=== PATIENT | female | born 1935 | race Caucasian/White ===

== ENCOUNTER 2017-05-20 10:51 | Day surgery (SDC) | payer MEDICARE ==
[~2017-05-20] VITALS: Ht 162.6 cm; Wt 75.0 kg
[2017-05-20] VITALS (9 sets, daily range): BP systolic 120–177; BP diastolic 63–86; PULSE 65–78; TEMP 97–97.8
[~2017-05-20 10:51] MED LIST: ANTACID200 MG PO; ASPIRIN E.C. 8181 MG PO; AZO-STANDARD95 MG PO; FISH OIL1000 MG PO; GLUCOSAMINE & C1 CA1 PO; NORCO 325 MG-51 TAB PO; ONCOVITE1 TAB PO; PROBIOTIC-MAJOR PO; SENOKOT S 50 MG1 TAB PO; SINGULAIR 110 MG/TAB PO; SYNTHROID0.112 MG/T PO; VITAMIN D32000 I1 PO; ZOCOR 20MG20 MG PO
[2017-05-20] MEDS ORDERED: NORCO 325 MG-51 TAB PO (15:20)
[2017-05-20] MEDS ORDERED: SENOKOT S 50 MG1 TAB PO (15:21)
[2017-05-20] MEDS ORDERED: PYRIDIUM 100MG100 MG PO (15:22)
[2017-05-21 02:33] VITALS: BP 148/88; PULSE 74; TEMP 98.1
[2017-05-21 04:55] VITALS: BP 142/73; PULSE 72; TEMP 98
[2017-05-21 07:39] VITALS: BP 140/62; PULSE 77; TEMP 97.4
== END 2017-05-21 09:11 | disposition home or self-care (01) ==
LOC: SDCO 10:51 → SURG 17:40 → SDCO 05-21 09:11
DX: C67.8 Malignant neoplasm of overlapping sites of bladder (principal); E06.3 Autoimmune thyroiditis; M81.0 Age-related osteoporosis without current pathological fracture; K44.9 Diaphragmatic hernia without obstruction or gangrene
CPT/HCPCS: OP; C1769; C2617; G0378; J0690; J1100; J2405; J2704; J3010; J7120; Q9967

== ENCOUNTER → 2017-10-21 | Day surgery (SDC) | payer MEDICARE ==
[~2017-10-21] VITALS: Ht 162.6 cm; Wt 69.4 kg
[~2017-10-21] MED LIST changes: +PRILOSEC 20MG20 MG PO; +PYRIDIUM 100MG100 MG PO
[2017-10-21 12:25] VITALS: BP 173/74; PULSE 79; TEMP 97.2
[2017-10-21 14:06] VITALS: TEMP 98
[2017-10-21 14:15] VITALS: BP 151/77; PULSE 70
[2017-10-21 14:30] VITALS: BP 166/74; PULSE 70
[2017-10-21 14:45] VITALS: BP 184/81; PULSE 71
== END ==
LOC: SDCO 11:01
DX: N32.89 Other specified disorders of bladder (principal); K21.9 Gastro-esophageal reflux disease without esophagitis; Z88.2 Allergy status to sulfonamides; Z88.8 Allergy status to other drugs, medicaments and biological substances; Z88.1 Allergy status to other antibiotic agents; Z91.040 Latex allergy status; Z90.710 Acquired absence of both cervix and uterus; Z79.82 Long term (current) use of aspirin; Z85.51 Personal history of malignant neoplasm of bladder
CPT/HCPCS: C1769; J0690; J1100; J1644; J2405; J2704; J3010; J7120; Q9967

== ENCOUNTER 2018-01-27 12:03 | Day surgery (SDC) | payer MEDICARE ==
[~2018-01-27] VITALS: Ht 162.6 cm; Wt 63.0 kg
[2018-01-27 13:24] VITALS: BP 152/86; PULSE 76; TEMP 97.5
[2018-01-27] MEDS ORDERED: vitamin D PO (13:47)
[2018-01-27] MEDS ORDERED: BIOTIN10000 MC1 PO (13:48)
[2018-01-27] MEDS ORDERED: NATURAL MAGNES200 MG PO (13:48)
[2018-01-27] MEDS ORDERED: MELATONIN1 MG PO (13:49)
[2018-01-27] MEDS ORDERED: SUPER ENZYMES PO (13:50)
[2018-01-27 14:37] VITALS: TEMP 97.5
[2018-01-27 15:00] VITALS: BP 178/68; PULSE 61
[2018-01-27 15:15] VITALS: BP 178/77; PULSE 64
[2018-01-27 15:30] VITALS: BP 162/82; PULSE 60
[2018-01-27] MEDS ORDERED: NORCO 325 MG-51 TAB PO (15:38)
[2018-01-27] MEDS ORDERED: PYRIDIUM 100MG100 MG PO (15:38)
[2018-01-27] MEDS ORDERED: SENOKOT S 50 MG1 TAB PO (15:39)
[2018-01-27 15:45] VITALS: BP 177/85; PULSE 59
== END 2018-01-27 16:26 | disposition home or self-care (01) ==
LOC: SDCO 12:03
DX: C67.8 Malignant neoplasm of overlapping sites of bladder (principal); N13.1 Hydronephrosis with ureteral stricture, not elsewhere classified; E83.42 Hypomagnesemia; E03.9 Hypothyroidism, unspecified; M81.0 Age-related osteoporosis without current pathological fracture; Z90.710 Acquired absence of both cervix and uterus; Z79.82 Long term (current) use of aspirin; Z88.2 Allergy status to sulfonamides; Z88.1 Allergy status to other antibiotic agents; Z91.040 Latex allergy status; Z87.891 Personal history of nicotine dependence
CPT/HCPCS: C1769; C2617; J0690; J1100; J2405; J2704; J3010; J7120; Q9967

== ENCOUNTER 2018-04-21 12:02 | Day surgery (SDC) | payer MEDICARE ==
[~2018-04-21] VITALS: Ht 162.6 cm; Wt 63.4 kg
[~2018-04-21 12:02] MED LIST changes: +BIOTIN10000 MC1 PO; +MELATONIN1 MG PO; +NATURAL MAGNES200 MG PO; +SUPER ENZYMES PO; +vitamin D PO
[2018-04-21 12:41] VITALS: BP 179/91; PULSE 70; TEMP 97.6
[2018-04-21] MEDS ORDERED: SYNTHROID0.1 MG/TAB PO (12:54)
[2018-04-21 15:45] VITALS: BP 152/77; PULSE 66; TEMP 97.2
[2018-04-21 16:00] VITALS: BP 156/83; PULSE 69
[2018-04-21 16:15] VITALS: BP 156/94; PULSE 73
== END 2018-04-21 17:07 | disposition home or self-care (01) ==
LOC: SDCO 12:02
DX: N13.1 Hydronephrosis with ureteral stricture, not elsewhere classified (principal); N30.20 Other chronic cystitis without hematuria; E03.9 Hypothyroidism, unspecified; M81.0 Age-related osteoporosis without current pathological fracture; E83.42 Hypomagnesemia; E06.3 Autoimmune thyroiditis; N17.9 Acute kidney failure, unspecified; K21.9 Gastro-esophageal reflux disease without esophagitis; D64.9 Anemia, unspecified; Z90.710 Acquired absence of both cervix and uterus; Z79.82 Long term (current) use of aspirin; Z88.1 Allergy status to other antibiotic agents; Z91.040 Latex allergy status; Z88.2 Allergy status to sulfonamides; Z88.6 Allergy status to analgesic agent; Z87.891 Personal history of nicotine dependence; Z85.51 Personal history of malignant neoplasm of bladder
CPT/HCPCS: C1769; C2617; J0690; J1100; J2405; J2704; J3010; J7120

== ENCOUNTER 2018-08-09 05:43 | Day surgery (SDC) | payer MEDICARE ==
[~2018-08-09] VITALS: Ht 162.6 cm; Wt 67.2 kg
[~2018-08-09 05:43] MED LIST changes: +SYNTHROID0.1 MG/TAB PO
[2018-08-09 06:19] VITALS: BP 162/85; PULSE 70; TEMP 97.6
[2018-08-09] MEDS ORDERED: DIGESTIVE PROB1 EACH PO (06:31)
--- NOTE | 2018-08-09 06:33 | NUR ---
TO RM AT 0553- CALL LIGHT IN REACH AT BEDSIDE
[2018-08-09 08:13] VITALS: TEMP 98.1
[2018-08-09 08:20] VITALS: BP 137/62; PULSE 57
--- NOTE | 2018-08-09 08:20 | NUR ---
TO RM 8 PER CART FROM PACU. ALERT ORIENTED X3, TALKING TO STAFF AND . DENIES PAIN OR DISCOMFORT. DENIES NAUSEA OR VOMITING. RECEIVED COFFEE AND MUFFIN.
[2018-08-09 08:35] VITALS: BP 144/65; PULSE 58
--- NOTE | 2018-08-09 08:35 | NUR ---
ATE 100% AND TOLERATED WELL. NO OTHER CHANGES
[2018-08-09 08:50] VITALS: BP 144/63; PULSE 62
--- NOTE | 2018-08-09 08:50 | NUR ---
RECEIVED 2ND CUP COFFEE
--- NOTE | 2018-08-09 09:00 | NUR ---
UP AMBULATED TO BATHROOM. VOIDED AND TOLERATED WELL CONTINUES TO DENY PAIN OR DISCOMFORT.
--- NOTE | 2018-08-09 09:05 | NUR ---
RECEIVED DISCHARGE INSTRUCTIONS AND VERBALIZED UNDERSTANDING. DISCONTINUED IV AND INT-CATHETER INTACT PATIENT GETTING DRESSED
--- NOTE | 2018-08-09 09:15 | NUR ---
DISCHARGED PER WC BY NURSING STAFF TO PRIVATE CAR IN CARE OF -TERESA.
== END 2018-08-09 09:34 | disposition home or self-care (01) ==
LOC: SDCO 05:43
DX: N13.1 Hydronephrosis with ureteral stricture, not elsewhere classified (principal); N17.9 Acute kidney failure, unspecified; E06.3 Autoimmune thyroiditis; E83.42 Hypomagnesemia; E03.9 Hypothyroidism, unspecified; M81.0 Age-related osteoporosis without current pathological fracture; K21.9 Gastro-esophageal reflux disease without esophagitis; D64.9 Anemia, unspecified; Z85.51 Personal history of malignant neoplasm of bladder; Z90.710 Acquired absence of both cervix and uterus; Z79.82 Long term (current) use of aspirin; Z88.1 Allergy status to other antibiotic agents; Z91.040 Latex allergy status; Z88.2 Allergy status to sulfonamides; Z87.891 Personal history of nicotine dependence
CPT/HCPCS: C1769; C2617; J0690; J1100; J2405; J2704; J3010; J7120

== ENCOUNTER 2019-02-11 08:39 | Inpatient (IN) | payer MEDICARE ==
[~2019-02-11] VITALS: Ht 162.6 cm; Wt 69.9 kg
[~2019-02-11 08:39] MED LIST changes: +AZO URINARY PAI95 MG PO; +BIOTIN800 MCG PO; +DIGESTIVE PROB1 EACH PO
[2019-02-11 12:09] LABS: BASO % 0.4 % (0.0-2.0); EOS # 0.1 (0.0-0.7); EOS % 1.9 % (0-4.0); GRAN # 5.2 (1.4-6.5); GRAN % 77.1 % (42.2-75.2); HEMATOCRIT 39.6 % (37.0-47.0); LYMPH # 0.9 (1.2-3.4); MEAN CELL VOLUME 97 fl (80.0-100.0); MEAN CORPUSCULAR HEMOGLOBIN 32 pg (27.0-31.0); MEAN CORPUSCULAR HGB CONC 33 g/dl (33.0-37.0); MEAN PLATELET VOLUME 10.5 fl (7.4-10.4); MONO # 0.5 (0.1-0.6); MONO % 7.5 % (1.7-9.3); PLATELET COUNT 231 K/mm3 (130-400); RED BLOOD COUNT 4.09 M/mm3 (4.10-5.30); REDCELL DISTRIBUTION WIDTH-CV 12.7 % (11.5-14.5)
[2019-02-11 12:18] LABS: INR 0.9 (0.8-3.0); PROTHROMBIN TIME 10.6 SECONDS (9.7-12.8)
[2019-02-11 12:49] LABS: ALBUMIN 3.9 gm/dL (3.5-5.0); BILIRUBIN,TOTAL 0.4 mg/dL (0.0-1.0); CALCIUM 9.6 mg/dL (8.4-10.2); CREATININE, serum 1.3 (0.52-1.25); POTASSIUM 4.4 mmol/L (3.4-5.0); TOTAL PROTEIN 6.8 gm/dL (6.4-8.2)
[2019-02-11 13:29] VITALS: BP 171/73; PULSE 67; TEMP 98
[2019-02-11 17:19] VITALS: BP 176/80; PULSE 64; TEMP 97.8
--- NOTE | 2019-02-11 18:00 | NUR ---
Patient has been doing well since being admitted. Minimal complaints of pain. Her pain has been well controlled with tylenol. She did not want a srivastava catheter placed. She is using the bedpan without issues. No other changes at this time. Call light within reach. Tylenol is controlling pain well. Patient understands she is NPO after midnight.
[2019-02-11 18:12] LABS: COLLECTION METHOD CATHETER
[2019-02-11 18:22] LABS: MUCOUS Present /lpf; PH 7 (5-8); SQUAMOUS EPITHELIAL 0-2 /hpf; URINE APPEARANCE Clear; URINE BACTERIA None Seen /hpf; URINE BILIRUBIN Negative (NEGATIVE); URINE BLOOD 1+ (NEGATIVE); URINE COLOR Straw; URINE GLUCOSE Negative (NEGATIVE); URINE KETONE Negative (NEGATIVE); URINE LEUKOCYTE ESTERASE 1+ (NEGATIVE); URINE NITRATE Negative (NEGATIVE); URINE PROTEIN(semi-quant) Negative (NEGATIVE); URINE UROBILINOGEN Negative (NEGATIVE)
[2019-02-11 20:08] VITALS: BP 149/72; PULSE 71; TEMP 98.3
[2019-02-12] VITALS (13 sets, daily range): BP systolic 137–185; BP diastolic 66–91; PULSE 61–82; TEMP 97.6–98.5
--- NOTE | 2019-02-12 00:32 | NUR ---
5 PAGE ADMISSION ASSESSMENT COMPLETED. CONSENT FOR SURGERY OBTAINED. PT STATES HER PAIN IS VERY TOLERABLE LONG SHE DOES NOT MOVE.
--- NOTE | 2019-02-12 06:20 | NUR ---
RESTING QUIETLY. NO N/V. PT USING BEDPAIN. CONSENT SIGNED FOR SURGERY.
[2019-02-12 07:43] LABS: BASO % 0.5 % (0.0-2.0); EOS # 0.2 (0.0-0.7); EOS % 2.9 % (0-4.0); GRAN # 4.2 (1.4-6.5); GRAN % 72.7 % (42.2-75.2); HEMOGLOBIN 11.6 g/dl (12.5-16.0); LYMPH # 0.8 (1.2-3.4); LYMPH % 14.3 % (20.0-51.0); MEAN CELL VOLUME 97 fl (80.0-100.0); MEAN CORPUSCULAR HEMOGLOBIN 32 pg (27.0-31.0); MEAN CORPUSCULAR HGB CONC 33 g/dl (33.0-37.0); MEAN PLATELET VOLUME 10.2 fl (7.4-10.4); MONO # 0.5 (0.1-0.6); MONO % 9.3 % (1.7-9.3); PLATELET COUNT 229 K/mm3 (130-400); RED BLOOD COUNT 3.64 M/mm3 (4.10-5.30); REDCELL DISTRIBUTION WIDTH-CV 12.7 % (11.5-14.5)
--- NOTE | 2019-02-12 07:50 | NUR ---
To surgery per bed with OR staff. Family here.
[2019-02-12 07:57] LABS: ALBUMIN 3.6 gm/dL (3.5-5.0); BILIRUBIN,TOTAL 0.4 mg/dL (0.0-1.0); CALCIUM 9.3 mg/dL (8.4-10.2); CREATININE, serum 1.14 (0.52-1.25); PHOSPHOROUS 3.5 mg/dL (2.5-4.5); TOTAL PROTEIN 6.6 gm/dL (6.4-8.2)
[2019-02-12 08:05] LABS: HEMATOCRIT 35.3 % (37.0-47.0)
--- NOTE | 2019-02-12 12:06 | NUR ---
Patient lives at home with her (Jasiel Lorenzo) in [place], [place] and plans to return home upon recovery if possible. Patient is mostly independent with daily living activities, has no durable medical equipment usage at this time but may need assistance since right hip fracture and to be determined. Patient's primary care physician is Dr. Leobardo Armenta, her pharmacy is [facility], and she does have advance directives of healthcare completed (primary DPOA is Jasiel Lorenzo [phone] and secondary DPOA is Kathleen Lorenzo). No further needs at this time and administrator social welfare will follow as needed.
--- NOTE | 2019-02-12 12:35 | NUR ---
Received patient from PACU per bed. Had spinal anesthesia. No complaints. VSS. Occlusive dressing to right hip CDI. Ice pack intact. Family here.
--- NOTE | 2019-02-12 18:00 | NUR ---
VSS. Right hip pain improved with pain medication and repositioning. Taking po fluids.
[2019-02-13 03:33] VITALS: BP 186/83; PULSE 78; TEMP 98.1
[2019-02-13 06:21] LABS: HEMOGLOBIN 11.7 g/dl (12.5-16.0)
[2019-02-13 07:24] VITALS: BP 162/66; PULSE 86; TEMP 98
--- NOTE | 2019-02-13 11:27 | NUR ---
First visit from the sourcing engineer. No needs right now.
--- NOTE | 2019-02-13 11:32 | NUR ---
PT IV INFILTRATED DURING ASSESSMENTS. DISCONTINUED. PT TOLERATED WELL. UP TO RECLINER WITH THERAPY. PT A/O X3 FAMILY AT BEDSIDE. NEW ORDERS RECIEVED SEE COMPUTER.
[2019-02-13 11:41] VITALS: BP 130/77; PULSE 80; TEMP 98.5
--- NOTE | 2019-02-13 13:46 | NUR ---
ZAKIA met with the patient to discuss discharge plan. The pt was interested in [facility]. SW presented the patient choice form and pt chose [facility]. A copy was provided to the patient and the original was placed in the chart. ZAKIA informed SONA Goldberg Director. ZAKIA will continue to follow to assist with any discharge recommendations.
--- NOTE | 2019-02-13 14:54 | NUR ---
DISCONTINUED BUENROSTRO CATHETER, EMPTIED 1250 MLS CLEAR YELLOW URINE. TIP INTACT, PT TOLERATED WELL. DRESSING CHANGE COMPLETE AQUACEL OVER STERI STRIPS. INCISION CDI.
--- NOTE | 2019-02-13 15:59 | NUR ---
Ashlyn, [facility] Director reports patient can be accepted to [facility] tomorrow, 02/13. SW will continue to follow.
[2019-02-13 16:21] VITALS: BP 155/63; PULSE 80; TEMP 97.6
--- NOTE | 2019-02-13 18:52 | NUR ---
REPORT TO WILY JIMENEZ.
--- NOTE | 2019-02-13 20:00 | NUR ---
PATIENT IS A&O. 1 ASSIST TO BATHROOM TO VOID AND THEN BACK TO BED. PATIENT REPORTS SHE IS VERY TIRED FROM THE DAY. RIGHT HIP DRESSING IS CD&I WITH AQUACEL. TEDS & SCD'S TO BLE. POSITIVE PEDAL PULSES TO BLE. PATIENT EAT/DRINK/VOIDING SUFFICENT AMOUNTS. NO C/O N/V. IV TO INT. HEAD TO TOE ASSESSMENT WNL. PATIENT ONLY REQUESTING TYLENOL FOR DISCOMFORT IN RIGHT HIP. ICE PACK APPLIED. PM MEDS GIVEN. CALL LIGHT IN REACH. LIGHTS TURN DOWN.
[2019-02-13 21:33] VITALS: BP 155/71; PULSE 88; TEMP 98.9
[2019-02-13 23:50] VITALS: BP 169/81; PULSE 95; TEMP 98.8
[2019-02-14 03:16] VITALS: BP 177/84; PULSE 82; TEMP 98.4
[2019-02-14 07:06] LABS: BASO % 0.4 % (0.0-2.0); CALCIUM 9.2 mg/dL (8.4-10.2); CREATININE, serum 1.15 (0.52-1.25); EOS # 0.3 (0.0-0.7); EOS % 3.8 % (0-4.0); GRAN # 6.1 (1.4-6.5); GRAN % 73.6 % (42.2-75.2); HEMOGLOBIN 11.1 g/dl (12.5-16.0); LYMPH % 11.7 % (20.0-51.0); MEAN CELL VOLUME 95 fl (80.0-100.0); MEAN CORPUSCULAR HEMOGLOBIN 31 pg (27.0-31.0); MEAN CORPUSCULAR HGB CONC 33 g/dl (33.0-37.0); MONO # 0.8 (0.1-0.6); MONO % 10.1 % (1.7-9.3); PLATELET COUNT 213 K/mm3 (130-400); POTASSIUM 3.8 mmol/L (3.4-5.0); RED BLOOD COUNT 3.56 M/mm3 (4.10-5.30); REDCELL DISTRIBUTION WIDTH-CV 12.8 % (11.5-14.5)
[2019-02-14 07:15] LABS: HEMATOCRIT 33.9 % (37.0-47.0)
[2019-02-14 07:37] VITALS: BP 154/68; PULSE 82; TEMP 98.3
[2019-02-14 07:38] LABS: TSH w REFLEX 17.5 uIU/mL (0.465-4.680)
--- NOTE | 2019-02-14 09:21 | NUR ---
SW presented the IM form to the patient. Patient understood and signed the form. A copy was provided to the pt and the original was placed in the chart. ZAKIA will continue to follow.
[2019-02-14] MEDS ORDERED: ASPI325T6 PO (10:38)
[2019-02-14] MEDS ORDERED: TYLENOL 325MG325 MG PO (10:39)
[2019-02-14] MEDS ORDERED: DULCOLAX S10 MG/SUPP RC (10:40)
[2019-02-14] MEDS ORDERED: OSCAL 500 TAB500 MG PO (10:40)
[2019-02-14] MEDS ORDERED: SENNA-S 50 MG-81 TAB PO (10:40)
[2019-02-14] MEDS ORDERED: NORCO 325 MG-51 TAB PO (10:40)
[2019-02-14] MEDS ORDERED: GOOD NEIGH1200 MG/15 PO (10:40)
[2019-02-14] MEDS ORDERED: VITAMIN C500 MG PO (10:41)
[2019-02-14 11:13] VITALS: BP 161/72; PULSE 77; TEMP 98.3
[2019-02-14] MEDS ORDERED: NORVASC 5MG5 MG/TAB PO (11:14)
[2019-02-14] MEDS ORDERED: SYNTHROID0.112 MG/T PO (11:15)
--- NOTE | 2019-02-14 12:19 | NUR ---
Patient has been doing well all morning. Minimal complaints of pain. Patient is discharging to [facility]. Report given to Ilya Adamson RN. All belongings packed up and moved to room 338. Patient is getting ready to move now. First dose of Norvasc given before going. Patient has already at lunch as well. No other changes at this time.
== END 2019-02-14 12:15 | DRG 470 ==
LOC: COL.ER 08:39 → SURG 12:02 → COL.ER 12:19 → SURG 12:19
PROVIDERS: Nurse Practitioner Family; Nurse Practitioner Primary Care; Orthopaedic Surgery; ADMIT Family Medicine
PROC: 0SRR0J9 Replacement of Right Hip Joint, Femoral Surface with Synthetic Substitute, Cemented, Open Approach (ICD-10-PCS; principal; 2019-02-12 08:00)
DX: M80.051A Age-related osteoporosis with current pathological fracture, right femur, initial encounter for fracture (principal); N17.9 Acute kidney failure, unspecified; I10 Essential (primary) hypertension; E78.5 Hyperlipidemia, unspecified; E06.3 Autoimmune thyroiditis; I12.9 Hypertensive chronic kidney disease with stage 1 through stage 4 chronic kidney disease, or unspecified chronic kidney disease; N18.3 Chronic kidney disease, stage 3 (moderate); E86.0 Dehydration; Z85.51 Personal history of malignant neoplasm of bladder; Z88.2 Allergy status to sulfonamides; Z88.1 Allergy status to other antibiotic agents; Z90.710 Acquired absence of both cervix and uterus
CPT/HCPCS: 99222-AI; 99232-AI; 99233-AI; 99239; A4314; A9284; C1713; C1776; J0171; J0360; J0690; J1885; J2250; J2270; J2370; J2405; J2704; J3010; J7120

== ENCOUNTER 2019-02-14 09:30 | Inpatient (IN) | payer MEDICARE ==
[~2019-02-14] VITALS: Ht 162.6 cm; Wt 69.4 kg
[2019-02-14] MEDS ORDERED: ASPI325T6 PO (10:38)
[2019-02-14] MEDS ORDERED: TYLENOL 325MG325 MG PO (10:39)
[2019-02-14] MEDS ORDERED: SENNA-S 50 MG-81 TAB PO (10:40)
[2019-02-14] MEDS ORDERED: DULCOLAX S10 MG/SUPP RC (10:40)
[2019-02-14] MEDS ORDERED: NORCO 325 MG-51 TAB PO (10:40)
[2019-02-14] MEDS ORDERED: OSCAL 500 TAB500 MG PO (10:40)
[2019-02-14] MEDS ORDERED: GOOD NEIGH1200 MG/15 PO (10:40)
[2019-02-14] MEDS ORDERED: VITAMIN C500 MG PO (10:41)
[2019-02-14] MEDS ORDERED: NORVASC 5MG5 MG/TAB PO (11:14)
[2019-02-14] MEDS ORDERED: SYNTHROID0.112 MG/T PO (11:15)
[2019-02-14 15:23] VITALS: BP 148/67; PULSE 81; TEMP 98.2
--- NOTE | 2019-02-14 17:45 | NUR ---
Patient arrived to [facility] at 12:30 today. She started with therapy right away. The initial was completed by Hasmukh/LUL and 5 page was completed by Carmen/RN. Patient signed all admission documents. She is currently resting in bed at this time, call light in reach. Will continue to monitor.
[2019-02-14 18:07] VITALS: BP 148/67; PULSE 81; TEMP 98.2
--- NOTE | 2019-02-14 21:30 | NUR ---
Returned from the bathroom and reports 7/10 pain right hip/leg and norco 1 tab given with julius stacy.
--- NOTE | 2019-02-15 01:24 | NUR ---
Patient has been resting with eyes closed since norco given earlier for pain.
[2019-02-15 05:26] VITALS: BP 159/71; PULSE 86; TEMP 97.4
--- NOTE | 2019-02-15 09:12 | NUR ---
Pt is awake and A/Ox4, sitting up in the recliner. She states she is having 3/10 aches to right hip, denies need for pain medication. Pt denies any other needs at this time.
--- NOTE | 2019-02-15 11:52 | NUR ---
Pt given PRN tylenol for 4/10 aches to right hip. Denies any other needs.
--- NOTE | 2019-02-15 14:33 | NUR ---
SW met with the patient to discuss a discharge plan. The pt lives in [place] with her , Jasiel Lorenzo. The pt is mostly independent with ADLs and does not use DME. However, pt reports Jasiel has acquired a walker. The pt's PCP is Dr. Leobardo Armenta and pt receives medications from [facility] in [place]. The pt has advance directives in the EMR and designate her Jasiel Lorenzo [phone] and Kathleen Lorenzo. SW will continue to follow to assist with any discharge recommendations.
--- NOTE | 2019-02-15 16:23 | NUR ---
ZAKIA met with the patient to discuss Team Conference I. The pt did not have any questions at this time. The team is recommending outpatient PT. The pt chose [facility] for this therapy. The team is recommending a walker for the pt. The pt reports she will check with her to be sure he acquired a walker. ZAKIA will continue to follow.
--- NOTE | 2019-02-15 16:38 | NUR ---
Pt is resting in recliner, denies any needs at this time.
[2019-02-15 18:53] VITALS: BP 139/62; PULSE 80; TEMP 97.8
--- NOTE | 2019-02-15 21:00 | NUR ---
PT PLEASANT AND COOPERATIVE. VERY LITTLE PAIN REPORTED. AMB WITH WALKER TO BR. STEADY GAIT. SCD'S ON BILAT. TEDS OFF. PT CALLS WHEN NEEDING UP. DENIES ANY NEEDS.
[2019-02-16 05:46] VITALS: BP 144/74; PULSE 82; TEMP 98.5
--- NOTE | 2019-02-16 09:30 | NUR ---
PT OUT TO THERAPY THIS AM. EATING AND DRINKING WITH NO N/V. DRESSING TO RIGHT HIP CDI. PT DENIES NEEDS.
--- NOTE | 2019-02-16 11:37 | NUR ---
pt in room at this time.
--- NOTE | 2019-02-16 13:56 | NUR ---
PT SLEEPING AFTER THERAPY.
--- NOTE | 2019-02-16 13:58 | NUR ---
Spoke w/ pt & about doing a Family Conference on 02/17/19 @ 1:00 pm. They thought that would be fine & asked if their daughter could call in by phone. Told them that would be fine.
[2019-02-16 18:03] VITALS: BP 133/63; PULSE 74; TEMP 97.9
--- NOTE | 2019-02-16 21:00 | NUR ---
PT SITTING IN RECLINER WITH LEGS ELEVATED. ICE PACK TO RT HIP. DENIES NEEDS FOR PAIN MED. MOVING AROUND WELL WITH WALKER. NO NEEDS AT THIS TIME. CALL LIGHT IN REACH. CHAIR ALARM SET.
[2019-02-17 05:36] VITALS: BP 137/66; PULSE 78; TEMP 98.4
[2019-02-17 06:38] LABS: BASO % 0.4 % (0.0-2.0); EOS # 0.6 (0.0-0.7); EOS % 10.4 % (0-4.0); GRAN # 3.2 (1.4-6.5); HEMOGLOBIN 10.4 g/dl (12.5-16.0); LYMPH # 0.9 (1.2-3.4); MEAN CELL VOLUME 96 fl (80.0-100.0); MEAN CORPUSCULAR HEMOGLOBIN 31 pg (27.0-31.0); MEAN CORPUSCULAR HGB CONC 33 g/dl (33.0-37.0); MEAN PLATELET VOLUME 9.4 fl (7.4-10.4); MONO # 0.6 (0.1-0.6); MONO % 10.6 % (1.7-9.3); PLATELET COUNT 298 K/mm3 (130-400); RED BLOOD COUNT 3.31 M/mm3 (4.10-5.30); REDCELL DISTRIBUTION WIDTH-CV 13.2 % (11.5-14.5)
[2019-02-17 06:44] LABS: HEMATOCRIT 31.8 % (37.0-47.0)
[2019-02-17 07:00] LABS: CALCIUM 9.3 mg/dL (8.4-10.2); CREATININE, serum 1.19 (0.52-1.25); MAGNESIUM 2.1 mg/dL (1.6-2.3); POTASSIUM 3.9 mmol/L (3.4-5.0)
--- NOTE | 2019-02-17 10:08 | NUR ---
Patient working with PT at this time. Patient tolerating diet well. Pleasent mood. Patient took pills whole with water this morning. Patient has not had a BM sine 02/14 and was given prn miralax and colace this morning. Awaiting results. Mepilex in place to patient's coccyx area due to redness only. It is non blanchable area. Patient continues on hip precautions. Will continue to monitor.
--- NOTE | 2019-02-17 13:27 | NUR ---
A Family Conference was conducted with pt & pt's & daughter via phone. Also present was PT, OT, ST, SW, & Upset Operator. Upset Operator started by explaining the purpose of the meeting. The therapists explained how pt has been functioning & making good progress. Informed them of d/c for 02/21/19 with recommendations for home w/ outpatient PT. They asked questions which team answered. Pt & family are pleased with progress & care pt is receiving.
[2019-02-17 13:43] VITALS: BP 130/64; PULSE 80; TEMP 98
--- NOTE | 2019-02-17 17:50 | NUR ---
Patient attended all therapies and tolerated regular diet well this shift. Had multiple visitors today. Was in a pleasent mood. Was requesting bowel meds be given at HS. This was communicated to night nurse. Pain was controlled with prn pain meds this shift. She was independent with eating.
--- NOTE | 2019-02-17 19:35 | NUR ---
Pt sleeping upon entering room. Easily arousable. Pt is alert and oriented. No distress noted. Pt denies pain at this time. Respirations even and unlabored. Lungs clear. Abdomen soft, nontender. BS+. R hip Aquacell clean, dry and intact. Aqaucell was rolling at bottom edge-reinforced. 1+ edema noted to RLE. Pedal pulses 2+ bilaterally. Pt reports not having a BM for "several days". Last charted BM was 8/15-Small. Scheduled bowel meds were not given last night. Pt requesting scheduled bowel meds and PRN bowel meds at HS. No other needs noted. Will continue to monitor.
--- NOTE | 2019-02-17 21:30 | NUR ---
Pt was up x1 to bathroom after receiving scheduled bowel meds and PRN MOM. Pt did not have results. Will continue to monitor.
--- NOTE | 2019-02-18 05:30 | NUR ---
Pt awake and alert. CPAP taken off and O2@3L via NC applied. AM medications given. Accucheck WNL. No insulin required. VSS. Pt slept well throughout the night with no complaints.
[2019-02-18 05:32] VITALS: BP 140/70; PULSE 78; TEMP 97.5
--- NOTE | 2019-02-18 05:40 | NUR ---
Pt resting in bed with HOB elevated. No distress noted. AM medications given. VSS. Pt had small, soft formed stool per PCT this AM.
--- NOTE | 2019-02-18 13:52 | NUR ---
SW presented the IM form to the patient; pt understood and signed the form. A copy was provided to the pt and original was placed in the chart. There are no additional needs at this time.
--- NOTE | 2019-02-18 13:59 | NUR ---
0800 - PT IS SITTING UP IN BED EATING MEAL. NO PAIN OR NEEDS AT THIS TIME. TAKES MEDS WELL WITH WATER. 0930 - PT LEAVES WITH THERAPY 1030 - PT RETURNS FROM THERAPY WITH STAFF. FAMILY HERE AND VISITING. 1200 - LUNCH BROUGHT INTO ROOM. PT IS DOING WELL IN ROOM. SHE IS MOD I IN ROOM AND HALLWAY WITH FWW PER TIFF.
--- NOTE | 2019-02-18 15:24 | NUR ---
UP TO BR. MOD I IN ROOM
[2019-02-18 17:00] VITALS: BP 137/60; PULSE 82; TEMP 98.8
--- NOTE | 2019-02-18 20:30 | NUR ---
Patient report received from BARBARA Robin at shift change. Upon assessment at this time patient is resting comfortably in bed. Patient denies pain or n/v. Reports that she had a good day and is ready for bed. Aquacel to Right hip CDI. No other need reported/observed.
[2019-02-19 04:36] VITALS: BP 141/59; PULSE 72; TEMP 98.1
--- NOTE | 2019-02-19 07:06 | NUR ---
Patient report given to BARBARA Robin. Patient rested comfortably throughout night. Tyleonl given for slight discomfort to right hip this am, but otherwise patient reports having a good night.
--- NOTE | 2019-02-19 10:05 | NUR ---
PT HAS HAD A BM LOOSE TODAY. SHE FEELS LIKE SHE IS GETTING AROUND WELL TODAY. NO REAL PAIN JUST OCC DISCOMFORT
--- NOTE | 2019-02-19 12:26 | NUR ---
FAMILY IN RROM VISITING
--- NOTE | 2019-02-19 13:13 | NUR ---
PT AMBULATES TWICE FROM HER ROOM AROUND THE SURGICAL DESK WITH STAFF AN SPOUSE. NO PAIN IN KNEE, SOME DISCOMFORT IN BACKS OF HER ARMS DUE TO PUSHING WALKER
[2019-02-19 15:22] VITALS: BP 130/63; PULSE 73; TEMP 97.7
--- NOTE | 2019-02-19 19:09 | NUR ---
Pt resting in bed. No distress noted.Pt denies pain. Respiration even and unlaobred. Lungs clear. Abdomen soft, nontender. R hip aquacell removed. Incision left open to air. No drainage noted. Edges well approximated. Pedal pulses equal bilaterally-2+. No other needs noted. Will continue to monitor.
--- NOTE | 2019-02-19 21:05 | NUR ---
Pt up to bathroom with walker. Steady gait. Oral care completed independently. Pt returned to bed. SCDs applied. No needs ntoed.
[2019-02-20 04:40] VITALS: BP 143/67; PULSE 73; TEMP 98.6
--- NOTE | 2019-02-20 05:45 | NUR ---
Pt slept well throughout the shift. Up multiple times throughout the night with SBA. Pt denies pain or needs this AM.
--- NOTE | 2019-02-20 13:42 | NUR ---
Patient resting in recliner at this time, call light in reach and Independent in her room with a walker. Hip incision looking well, no redness or drainage observed, edges well approximated, a few sterip strips still in tact and is open to air. Discussed discharge planning with patient this morning. Currently making follow up appointments for patient's. Patient denies pain at this time. Tolerating diet well this shift.
[2019-02-20 17:10] VITALS: BP 136/79; PULSE 86; TEMP 98.7
--- NOTE | 2019-02-20 19:08 | NUR ---
Patient attended all therapies today. She is currently resting in bed, call light in reach and independent in her room with a walker. Patient's bottom had no reddness to it. Discharge appointments have been made. Patient denied any questions and denied pain.
--- NOTE | 2019-02-20 19:20 | NUR ---
Pt sleeping, easily arousable. Alert and oriented. No distress noted. Pt denies pain. Respirations even and unlabored. Lungs clear. Abdomen soft, nontender. BS+. R hip incision open to air. Pt is mod-independent in room. Well tolerated. No needs noted. Will continue to monitor.
[2019-02-21 05:48] VITALS: BP 152/62; PULSE 71; TEMP 98.3
--- NOTE | 2019-02-21 06:03 | NUR ---
Pt resting this AM. Pt reports sleeping well last night. She denies pain at this time.
--- NOTE | 2019-02-21 08:36 | NUR ---
Patient resting in recliner this morning, reported eating all her breakfast. Was restless most of the night, but did get some sleep. Discussed discharge with patient. Patient took pills whole with water. Lucien hose are on, no edema. Denies pain at this time. Will continue to monitor.
--- NOTE | 2019-02-21 08:56 | NUR ---
SW presented the IM form to the patient; pt understood and signed the form. A copy was provided to the pt; original was placed in the chart. SW will continue to follow.
--- NOTE | 2019-02-21 12:48 | NUR ---
Patient Health Summary, Discharge Summary and Home Meds printed and reviewed with patient and . Stressed importance of follow up appointments. Called prescriptions for Norvasc to pharmacy of choice. 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 Patient transported via wheelchair by PHOTOGRAPHY COLORIST/Garrette and seatbelted for ride home with and daughter. Patient and family denied questions.
--- NOTE | 2019-02-21 13:33 | NUR ---
The pt discharged home today, 02/21 with outpatient PT at [facility]. faxed order and [facility] reports they received the fax and will contact the patient to set up appointments. There are no addtional needs at this time.
== END 2019-02-21 12:45 | disposition home or self-care (01) | DRG 560 ==
PROVIDERS: ADMIT Internal Medicine
DX: S72.001D Fracture of unspecified part of neck of right femur, subsequent encounter for closed fracture with routine healing (principal); N17.9 Acute kidney failure, unspecified; N18.3 Chronic kidney disease, stage 3 (moderate); I12.9 Hypertensive chronic kidney disease with stage 1 through stage 4 chronic kidney disease, or unspecified chronic kidney disease; E78.5 Hyperlipidemia, unspecified; E06.3 Autoimmune thyroiditis; Z79.82 Long term (current) use of aspirin; Z90.710 Acquired absence of both cervix and uterus; Z88.2 Allergy status to sulfonamides; Z88.9 Allergy status to unspecified drugs, medicaments and biological substances; Z85.51 Personal history of malignant neoplasm of bladder; Z87.891 Personal history of nicotine dependence
CPT/HCPCS: 99222-AI; 99232-AI; 99239

== ENCOUNTER 2019-05-02 05:28 | Day surgery (SDC) | payer MEDICARE ==
[~2019-05-02] VITALS: Ht 162.6 cm; Wt 67.5 kg
[~2019-05-02 05:28] MED LIST changes: +ASPI325T6 PO; +DULCOLAX S10 MG/SUPP RC; +GOOD NEIGH1200 MG/15 PO; +NORVASC 5MG5 MG/TAB PO; +OSCAL 500 TAB500 MG PO; +SENNA-S 50 MG-81 TAB PO; +TYLENOL 325MG325 MG PO; +VITAMIN C500 MG PO
[2019-05-02] MEDS ORDERED: SYNTHROID0.1 MG/TAB PO (05:51)
[2019-05-02] MEDS ORDERED: VITAMIN D PO (05:55)
[2019-05-02 05:56] VITALS: BP 119/79; PULSE 74; TEMP 97.4
[2019-05-02] MEDS ORDERED: FOSAMAX 70MG TA70 MG PO (05:56)
--- NOTE | 2019-05-02 08:55 | NUR ---
Patient arrives to [facility] [place] [facility] via cart, accompanied by GAMING DEPARTMENT HEAD Hannah. She is sitting up in bed, alert and oriented. She denies any pain or nausea. Monitoring applied - VSS and WNL on room air. brought to the bedside. Offered and receives coffee and a muffin. Call light in reach. Bed in low and locked position.
[2019-05-02 09:03] VITALS: BP 128/53; PULSE 64; TEMP 97.3
[2019-05-02 09:10] VITALS: BP 127/76; PULSE 70
--- NOTE | 2019-05-02 09:10 | NUR ---
VSS and WNL on room air. Resting in room comfortably. Denies pain, nausea, or need.
[2019-05-02 09:25] VITALS: BP 130/67; PULSE 66
--- NOTE | 2019-05-02 09:25 | NUR ---
Resting comfortably in room. Denies pain, nausea, or need. Offered and receives a refill on coffee.
--- NOTE | 2019-05-02 09:25 | NUR ---
Patient escorted to restroom at this time.
--- NOTE | 2019-05-02 09:28 | NUR ---
Patient voids and returns to room.
[2019-05-02 09:40] VITALS: BP 124/67; PULSE 68
--- NOTE | 2019-05-02 10:05 | NUR ---
Patient states "I'm ready to go home". She has met discharge criteria. Discharge instructions discussed, denies any questions, and verbalizes understanding. PIV removed with catheter intact and hemostasis achieved. Changes to clothing independently. Escorted to exit via wheelchair. Discharged to home with ride in private vehicle at 1005.
== END 2019-05-02 10:05 | disposition home or self-care (01) ==
LOC: SDCO 05:28
DX: N13.1 Hydronephrosis with ureteral stricture, not elsewhere classified (principal); Z85.51 Personal history of malignant neoplasm of bladder; E06.3 Autoimmune thyroiditis; E83.42 Hypomagnesemia; M81.0 Age-related osteoporosis without current pathological fracture; E03.9 Hypothyroidism, unspecified; Z79.899 Other long term (current) drug therapy; Z90.710 Acquired absence of both cervix and uterus; Z98.51 Tubal ligation status; Z79.82 Long term (current) use of aspirin; Z87.891 Personal history of nicotine dependence; K21.9 Gastro-esophageal reflux disease without esophagitis; K44.9 Diaphragmatic hernia without obstruction or gangrene; D64.9 Anemia, unspecified
CPT/HCPCS: C1769; C2617; J0690; J1100; J1885; J2405; J2704; J3010; J7120

== ENCOUNTER 2019-07-27 11:05 | Day surgery (SDC) | payer MEDICARE ==
[~2019-07-27] VITALS: Ht 162.6 cm; Wt 67.9 kg
[~2019-07-27 11:05] MED LIST changes: +FOSAMAX 70MG TA70 MG PO; +VITAMIN D PO
[2019-07-27 13:15] VITALS: BP 143/76; PULSE 82; TEMP 97.3
[2019-07-27 15:18] VITALS: BP 139/58; PULSE 43; TEMP 97.7
[2019-07-27 15:33] VITALS: BP 101/69; PULSE 36
[2019-07-27 15:48] VITALS: BP 125/72; PULSE 76
[2019-07-27 16:18] VITALS: BP 127/66; PULSE 68
--- NOTE | 2019-07-27 17:10 | NUR ---
PT RETURNED TO OUTPATIENT UNIT INTO BAY #7 VIA CART. PT AWAKE AND ORIENTED. WAS IN ROOM AT BEDSIDE. VSS, HR LOW AND IRREGULAR AT TIMES. PT STATES, 'IRREGULAR HEART RATE IS NOTHING NEW WITH ME'. SATS REMAINED IN THE 90'S, DENIES CHEST PAIN, SHORTNESS OF BREATH OR ANY OTHER DISCOMFORT. LUNGS SOUNDS DIMINISHED ON THE LEFT LOBES, CLEAR ON THE RIGHT, IN PRE-OP. BOWEL SOUNDS ACTIVE. PT REQUESTED WATER AND COFFEE TO DRINK. IV PATENT, WITLL CONT TO MONITOR PROGRESSION.
--- NOTE | 2019-07-27 17:18 | NUR ---
PT HR REMAINS LOW AND SLIGHTLY IRREGULAR AT TIMES. HR WILL RANGE BETWEEN LOW 40'S AND DIP INTO THE HIGH 30'S TO 70'S. PT ALERT AND ORIENTATED, TALKING WITH . EATING CRACKERS AND DRINKING COFFEE. DENIES SOB, CHEST PAIN, NAUSEA AND/OR ANY OTHER PAIN OR DISCOMFORT. WILL CONT TO MONITOR PROGRESS.
--- NOTE | 2019-07-27 17:22 | NUR ---
PT ALERT AND ORIENTATED, TALKING WITH , UP TO THE BATHROOM WITHOUT DIFFICULTY. TOLERATING FOOD AND FLUIDS. HR RANGING IN THE 60-70'S WILL CONT TO MONITOR PROGRESS.
--- NOTE | 2019-07-27 17:28 | NUR ---
PT VSS, AFEBRILE, PT DENIES PAIN OR NAUSEA. IV DC'D PER LEFT WRIST WITHOUT DIFFICULTY AND OR REDNESS AND SWELLING. DC INSTRUCTIONS GIVEN, PT VOICES UNDERSTANDING. PT STATES 'WILL CALL ABDON IF ANY PROBLEMS ARISE, MAHOGANY HAD THIS PROCEDURE MANY TIMES.' PT TAKEN PER WC TO MAIN [facility] ENTRANCE AND DC'D INTO FAMILY VEHICLE. PT , TERESA DRIVING.
== END 2019-07-27 16:30 | disposition home or self-care (01) ==
LOC: SDCO 11:05
DX: N13.5 Crossing vessel and stricture of ureter without hydronephrosis (principal); M81.0 Age-related osteoporosis without current pathological fracture; Z85.51 Personal history of malignant neoplasm of bladder; Z88.2 Allergy status to sulfonamides; Z88.1 Allergy status to other antibiotic agents; Z91.040 Latex allergy status; Z79.82 Long term (current) use of aspirin; Z90.710 Acquired absence of both cervix and uterus
CPT/HCPCS: C1769; C2617; J0690; J2704; J3010; J7120

== ENCOUNTER 2020-02-06 09:06 | Day surgery (SDC) | payer MEDICARE ==
[2020-02-06] VITALS (8 sets, daily range): BP systolic 139–165; BP diastolic 65–88; PULSE 67–82; TEMP 97.2–97.7
[~2020-02-06] VITALS: Ht 162.6 cm; Wt 68.5 kg
--- NOTE | 2020-02-06 12:20 | NUR ---
Patient returns to room 6 per cart from PACU accompanied by Hannah JIMENEZ and is awake but drowsy. Sipping on water. Temp 98 and room air sats 96%. Denies pain or nausea. IV fluids infusing and allowed to rest. Siderails up x2 and call light in reach.
--- NOTE | 2020-02-06 12:35 | NUR ---
Resting with eyes closed. Room air sats 98%.
--- NOTE | 2020-02-06 12:50 | NUR ---
Resting and offers no complaints.
--- NOTE | 2020-02-06 13:05 | NUR ---
Resting without complaints.
--- NOTE | 2020-02-06 13:50 | NUR ---
Drinking water and coffee. Eating toast.
--- NOTE | 2020-02-06 13:59 | NUR ---
Assisted up to the bathroom. Unable to urinate.
--- NOTE | 2020-02-06 14:20 | NUR ---
Drinking more water and coffee.
--- NOTE | 2020-02-06 14:45 | NUR ---
Patient again up to the bathroom and is able to void and returns to room. Patient dresses self and ride notified of discharge.
--- NOTE | 2020-02-06 15:10 | NUR ---
INT needle discontinued and dismissal instructions given and signed. Patient voices understanding of home cares and follow up as scheduled.
--- NOTE | 2020-02-06 15:35 | NUR ---
Patient dismissed to home driven by spouse and taken to the front door per wheelchair by this RN and asissted into vehicle.
== END 2020-02-06 15:35 | disposition home or self-care (01) ==
LOC: SDCO 09:06
DX: N13.1 Hydronephrosis with ureteral stricture, not elsewhere classified (principal); C67.8 Malignant neoplasm of overlapping sites of bladder; K21.9 Gastro-esophageal reflux disease without esophagitis; K44.9 Diaphragmatic hernia without obstruction or gangrene; M81.0 Age-related osteoporosis without current pathological fracture; E06.3 Autoimmune thyroiditis; E03.9 Hypothyroidism, unspecified; E83.42 Hypomagnesemia; Z98.51 Tubal ligation status; Z90.710 Acquired absence of both cervix and uterus; Z88.2 Allergy status to sulfonamides; Z88.1 Allergy status to other antibiotic agents; Z91.040 Latex allergy status; Z79.899 Other long term (current) drug therapy; Z88.8 Allergy status to other drugs, medicaments and biological substances; Z87.891 Personal history of nicotine dependence
CPT/HCPCS: C1769; C2617; J0690; J1100; J2270; J2405; J2704; J3010; J7120

== ENCOUNTER 2020-03-19 06:19 | Day surgery (SDC) | payer MEDICARE ==
[2020-03-19] VITALS (8 sets, daily range): BP systolic 140–154; BP diastolic 63–86; PULSE 58–74; TEMP 97.6–98.2
[~2020-03-19] VITALS: Ht 162.6 cm; Wt 67.7 kg
[~2020-03-19 06:19] MED LIST changes: +DIGESTIVE ADVA1 EAC1 PO; -DIGESTIVE PROB1 EACH PO; +VITAMIN D250 MCG PO
--- NOTE | 2020-03-19 09:15 | NUR ---
Patient arrived to floor via cart. Patient is alert and oriented. No complaints of pain or nausea. Oriented to room. Explained discharge criteria. Patient verbalized understanding. No other changes at this time. Call light within reach. VS stable.
--- NOTE | 2020-03-19 11:55 | NUR ---
Patient is discharging home. Discharge instructions discussed with patient. No questions verbalized. INT discontinued. All belongings packed up and sent with patient. Copies of discharge instructions sent with patient. Patient already has a follow up setup. No prescriptions to send. Patient walked out with this nurse.
== END 2020-03-19 11:55 | disposition home or self-care (01) ==
LOC: SDCO 06:19 → JCC 09:30 → SDCO 11:55
DX: N32.89 Other specified disorders of bladder (principal); C67.8 Malignant neoplasm of overlapping sites of bladder; N13.1 Hydronephrosis with ureteral stricture, not elsewhere classified; N18.9 Chronic kidney disease, unspecified; E06.3 Autoimmune thyroiditis; E03.9 Hypothyroidism, unspecified; M81.0 Age-related osteoporosis without current pathological fracture; E83.42 Hypomagnesemia; Q62.5 Duplication of ureter; Z98.51 Tubal ligation status; Z92.3 Personal history of irradiation; Z92.21 Personal history of antineoplastic chemotherapy; Z90.710 Acquired absence of both cervix and uterus; Z79.82 Long term (current) use of aspirin; Z79.899 Other long term (current) drug therapy; Z88.2 Allergy status to sulfonamides; Z91.040 Latex allergy status; Z87.891 Personal history of nicotine dependence; Z20.828 Contact with and (suspected) exposure to other viral communicable diseases
CPT/HCPCS: OP; C1769; C2617; J0690; J1100; J1885; J2405; J2704; J3010; J7120; Q9967

== ENCOUNTER 2020-08-23 05:22 | Day surgery (SDC) | payer MEDICARE ==
[~2020-08-23] VITALS: Ht 162.6 cm; Wt 68.9 kg
[2020-08-23 06:13] VITALS: BP 129/68; PULSE 81; TEMP 97.4
[2020-08-23] MEDS ORDERED: AZO URINARY PAI95 MG PO (06:46)
[2020-08-23] MEDS ORDERED: PRINIVIL5 MG PO (06:47)
[2020-08-23 08:16] VITALS: TEMP 97.7
[2020-08-23 08:35] VITALS: BP 118/55; PULSE 62
--- NOTE | 2020-08-23 08:35 | NUR ---
Patient returns to room 7 per cart from surgery and is awake and alert. IV fluids infusing at TKO and site is free of redness. Siderails up x2 and call light in reach. Spouse in room.
[2020-08-23 08:50] VITALS: BP 102/70; PULSE 63
--- NOTE | 2020-08-23 08:50 | NUR ---
Drinking coffe and denies pain or nausea.
[2020-08-23 09:05] VITALS: BP 111/62; PULSE 60
--- NOTE | 2020-08-23 09:05 | NUR ---
Eating a muffin and applesauce. Continues to sip on coffee.
[2020-08-23 09:20] VITALS: BP 110/72; PULSE 70
--- NOTE | 2020-08-23 09:20 | NUR ---
Assisted up to the bathroom and is able to void and returns to room. IV discontinued and dresses self.
--- NOTE | 2020-08-23 09:25 | NUR ---
Dismissal instructions given and voices understanding of these. Ready for discharge.
--- NOTE | 2020-08-23 09:32 | NUR ---
Patient dismissed to home driven by spouse and taken to the front door per wheelchair and assisted into vehicle with instructions in hand.
== END 2020-08-23 09:32 | disposition home or self-care (01) ==
LOC: SDCO 05:22
DX: N13.1 Hydronephrosis with ureteral stricture, not elsewhere classified (principal); J45.909 Unspecified asthma, uncomplicated; I10 Essential (primary) hypertension; Z85.51 Personal history of malignant neoplasm of bladder; Z90.710 Acquired absence of both cervix and uterus; Z79.82 Long term (current) use of aspirin; Z88.1 Allergy status to other antibiotic agents; Z91.040 Latex allergy status; Z88.2 Allergy status to sulfonamides; Z87.891 Personal history of nicotine dependence
CPT/HCPCS: C1769; C2617; J2405; J2704; J7120

== ENCOUNTER 2020-11-28 11:01 | Day surgery (SDC) | payer MEDICARE ==
[~2020-11-28] VITALS: Ht 162.6 cm; Wt 65.9 kg
[~2020-11-28 11:01] MED LIST changes: +PRINIVIL5 MG PO
[2020-11-28 11:36] VITALS: BP 121/68; PULSE 95; TEMP 97.4
[2020-11-28] MEDS ORDERED: MASON NATURAL2000 IU PO (12:06)
[2020-11-28] MEDS ORDERED: MELATIN 3 MG-11 TAB PO (12:07)
[2020-11-28 14:19] VITALS: TEMP 97.6
[2020-11-28 14:29] VITALS: BP 99/61; PULSE 64
--- NOTE | 2020-11-28 14:29 | NUR ---
Patient returns to room 8 per cart from PACU accompanied by Rosemary and is awake and alert. IV fluids infusing and site is free of redness. Temp 97.7 and room air sats 97%. Taking sips of water and coffee. Siderails up x2 and call light in reach.
[2020-11-28 14:44] VITALS: BP 124/60; PULSE 67
--- NOTE | 2020-11-28 14:44 | NUR ---
Tolerated coffee and water. Denies pain or nausea. Offered snack and states she is not hungry and will eat at home.
--- NOTE | 2020-11-28 14:46 | NUR ---
Assisted up to the bathroom and voids. Returns to room. IV discontinued and site is free of redness or swelling. Patient is dressing self.
--- NOTE | 2020-11-28 15:05 | NUR ---
Dismissal instructions signed and voices understanding of these.
--- NOTE | 2020-11-28 15:09 | NUR ---
Patient discharged to home driven by spouse and taken to the front door and assisted into vehilce by this RN and assisted into vehicle with dismissal instructions in hand.
== END 2020-11-28 15:09 | disposition home or self-care (01) ==
LOC: SDCO 11:01
DX: N13.1 Hydronephrosis with ureteral stricture, not elsewhere classified (principal); I12.9 Hypertensive chronic kidney disease with stage 1 through stage 4 chronic kidney disease, or unspecified chronic kidney disease; J45.909 Unspecified asthma, uncomplicated; N18.9 Chronic kidney disease, unspecified; M81.0 Age-related osteoporosis without current pathological fracture; E03.9 Hypothyroidism, unspecified; E06.3 Autoimmune thyroiditis; Z85.51 Personal history of malignant neoplasm of bladder; Z79.82 Long term (current) use of aspirin; Z92.3 Personal history of irradiation; Z79.890 Hormone replacement therapy; Z79.83 Long term (current) use of bisphosphonates; Z91.040 Latex allergy status; Z79.899 Other long term (current) drug therapy; Z92.21 Personal history of antineoplastic chemotherapy
CPT/HCPCS: C1769; C2617; J0690; J2405; J2704; J3010; J7030

== ENCOUNTER 2021-03-27 12:23 | Day surgery (SDC) | payer MEDICARE ==
[~2021-03-27] VITALS: Ht 162.6 cm; Wt 64.0 kg
[~2021-03-27 12:23] MED LIST changes: +MASON NATURAL2000 IU PO; +MELATIN 3 MG-11 TAB PO
[2021-03-27] MEDS ORDERED: VITAMIN C500 MG PO (13:12)
[2021-03-27] MEDS ORDERED: OSCAL 500 TAB500 MG PO (13:13)
[2021-03-27] MEDS ORDERED: AZO URINARY PAI95 MG (13:16)
[2021-03-27] MEDS ORDERED: SENOKOT8.6 MG PO (13:16)
[2021-03-27] MEDS ORDERED: MAGNESIUM250 M1 PO (13:17)
[2021-03-27 13:26] VITALS: BP 113/67; PULSE 82; TEMP 98
[2021-03-27 15:20] VITALS: BP 113/64; PULSE 82; TEMP 97.4
--- NOTE | 2021-03-27 15:20 | NUR ---
Pt returns to [place] [facility] from PACU, alert and oriented x3, VSS, denies pain. at bedside. Call light in reach.
[2021-03-27 15:35] VITALS: BP 119/64; PULSE 80
--- NOTE | 2021-03-27 15:35 | NUR ---
Pt is alert and doing well, tolerates coffee and a muffin well. Denies pain or nausea.
[2021-03-27 15:50] VITALS: BP 118/56; PULSE 78
--- NOTE | 2021-03-27 16:00 | NUR ---
Discharge instructions provide to pt and her . IV discontinued and pt up to the bathroom.
--- NOTE | 2021-03-27 16:20 | NUR ---
Pt unable to void, reports no pain "a small stitch in my side" has drank water x2 and coffee. Dr. Zamarripa notified and okay with pt going home. Pt understands to call office with any problems or concerns. Pt taken out via wheelchair and left in care of her at 1630.
== END 2021-03-27 16:30 | disposition home or self-care (01) ==
LOC: SDCO 12:23
DX: N13.1 Hydronephrosis with ureteral stricture, not elsewhere classified (principal); I10 Essential (primary) hypertension; M19.90 Unspecified osteoarthritis, unspecified site; N17.9 Acute kidney failure, unspecified; N18.9 Chronic kidney disease, unspecified; E06.3 Autoimmune thyroiditis; J44.9 Chronic obstructive pulmonary disease, unspecified; E83.42 Hypomagnesemia; E03.9 Hypothyroidism, unspecified; M81.0 Age-related osteoporosis without current pathological fracture; Z85.51 Personal history of malignant neoplasm of bladder; Z79.890 Hormone replacement therapy; Z79.899 Other long term (current) drug therapy; Z90.710 Acquired absence of both cervix and uterus; Z98.51 Tubal ligation status; Z79.82 Long term (current) use of aspirin; Z87.891 Personal history of nicotine dependence; Z20.822 Contact with and (suspected) exposure to COVID-19
CPT/HCPCS: C1769; C2617; J0690; J1100; J2405; J2704; J3010; J7120

== ENCOUNTER 2021-04-07 12:13 | Emergency (ER) | payer MEDICARE ==
[~2021-04-07] VITALS: Ht 162.6 cm; Wt 64.5 kg
[~2021-04-07 12:13] MED LIST changes: +AZO URINARY PAI95 MG; +MAGNESIUM250 M1 PO; +SENOKOT8.6 MG PO
[2021-04-07 12:40] VITALS: TEMP 98.2
[2021-04-07 13:49] LABS: BASO # 0.1 (0.0-0.2); BASO % 0.5 % (0.0-2.0); EOS # 0.2 (0.0-0.7); GRAN # 8.1 (1.4-6.5); GRAN % 77.7 % (42.2-75.2); HEMATOCRIT 32.3 % (37.0-47.0); HEMOGLOBIN 10.8 g/dl (12.5-16.0); LYMPH % 9.2 % (20.0-51.0); MEAN CELL VOLUME 92 fl (80.0-100.0); MEAN CORPUSCULAR HEMOGLOBIN 31 pg (27.0-31.0); MEAN CORPUSCULAR HGB CONC 33 g/dl (33.0-37.0); MEAN PLATELET VOLUME 9.7 fl (7.4-10.4); MONO # 1.1 (0.1-0.6); MONO % 10.1 % (1.7-9.3); PLATELET COUNT 212 K/mm3 (130-400); REDCELL DISTRIBUTION WIDTH-CV 13.1 % (11.5-14.5)
[2021-04-07 13:55] LABS: INR 1.2 (0.8-3.0)
[2021-04-07 14:07] LABS: ALBUMIN 3.1 gm/dL (3.4-4.8); BILIRUBIN,TOTAL 0.3 mg/dL (0.2-1.2); CALCIUM 10.1 mg/dL (8.4-10.2); CREATININE, serum 1.75 mg/dL (0.57-1.11); POTASSIUM 4.1 mmol/L (3.5-4.5); TOTAL PROTEIN 6.7 gm/dL (6.2-8.1)
[2021-04-07] MEDS ORDERED: XARELTO STARTER20 MG PO (15:03)
[2021-04-07] MEDS ORDERED: XARELTO20 MG PO (15:08)
[2021-04-07 15:32] VITALS: BP 125/75; PULSE 90
== END 2021-04-07 15:33 | disposition home or self-care (01) ==
LOC: COL.ER 12:13
PROVIDERS: Physician Assistant
DX: I82.402 Acute embolism and thrombosis of unspecified deep veins of left lower extremity (principal); R94.4 Abnormal results of kidney function studies; I12.9 Hypertensive chronic kidney disease with stage 1 through stage 4 chronic kidney disease, or unspecified chronic kidney disease; N18.30 Chronic kidney disease, stage 3 unspecified; Z87.891 Personal history of nicotine dependence; Z79.899 Other long term (current) drug therapy

== ENCOUNTER 2021-04-20 10:21 | Emergency (ER) | payer MEDICARE ==
[~2021-04-20] VITALS: Ht 162.6 cm; Wt 63.6 kg
[~2021-04-20 10:21] MED LIST changes: +XARELTO STARTER20 MG PO; +XARELTO20 MG PO
[2021-04-20 10:30] VITALS: TEMP 98.1
[2021-04-20 10:44] LABS: COLLECTION METHOD CLEAN CATCH
[2021-04-20 10:58] LABS: MUCOUS Present /lpf; PH 6 (5-8); SQUAMOUS EPITHELIAL None Seen /hpf; URINE APPEARANCE Cloudy; URINE BACTERIA Occasional /hpf; URINE BILIRUBIN Negative (NEGATIVE); URINE BLOOD 3+ (NEGATIVE); URINE COLOR Red; URINE GLUCOSE Negative (NEGATIVE); URINE KETONE Negative (NEGATIVE); URINE LEUKOCYTE ESTERASE 3+ (NEGATIVE); URINE NITRATE Negative (NEGATIVE); URINE PROTEIN(semi-quant) 2+ (NEGATIVE); URINE RBC >50 /hpf; URINE UROBILINOGEN Negative (NEGATIVE)
[2021-04-20 11:04] LABS: BASO # 0.1 K/mm3 (0.0-0.2); BASO % 0.7 % (0.0-2.0); EOS # 0.2 K/mm3 (0.0-0.7); EOS % 3.2 % (0-4.0); GRAN # 5.3 K/mm3 (1.4-6.5); GRAN % 74.9 % (42.2-75.2); HEMOGLOBIN 10.7 g/dl (12.5-16.0); LYMPH # 0.7 K/mm3 (1.2-3.4); MEAN CELL VOLUME 95 fl (80.0-100.0); MEAN CORPUSCULAR HEMOGLOBIN 30 pg (27.0-31.0); MEAN CORPUSCULAR HGB CONC 32 g/dl (33.0-37.0); MEAN PLATELET VOLUME 9.2 fl (7.4-10.4); MONO # 0.8 K/mm3 (0.1-0.6); MONO % 10.8 % (1.7-9.3); PLATELET COUNT 398 K/mm3 (130-400); RED BLOOD COUNT 3.52 M/mm3 (4.10-5.30); REDCELL DISTRIBUTION WIDTH-CV 13.4 % (11.5-14.5)
[2021-04-20 11:05] LABS: HEMATOCRIT 33.3 % (37.0-47.0)
[2021-04-20 11:11] LABS: INR 2.5 (0.8-3.0); PROTHROMBIN TIME 27.7 SECONDS (9.7-12.8)
[2021-04-20 11:22] LABS: ALBUMIN 3.2 gm/dL (3.4-4.8); BILIRUBIN,TOTAL 0.3 mg/dL (0.2-1.2); CALCIUM 10.2 mg/dL (8.4-10.2); CREATININE, serum 1.85 mg/dL (0.57-1.11); POTASSIUM 3.9 mmol/L (3.5-4.5); TOTAL PROTEIN 6.5 gm/dL (6.2-8.1)
[2021-04-20] MEDS ORDERED: CEFTIN500 MG PO (11:50)
[2021-04-20 12:10] VITALS: BP 137/76; PULSE 81
== END 2021-04-20 12:12 | disposition home or self-care (01) ==
LOC: COL.ER 10:21
PROVIDERS: Physician Assistant
DX: N30.90 Cystitis, unspecified without hematuria (principal); N18.9 Chronic kidney disease, unspecified; I82.402 Acute embolism and thrombosis of unspecified deep veins of left lower extremity; Z79.01 Long term (current) use of anticoagulants
CPT/HCPCS: J0696; J7030

== ENCOUNTER 2021-08-19 07:25 | Day surgery (SDC) | payer MEDICARE ==
[~2021-08-19] VITALS: Ht 162.6 cm; Wt 62.7 kg
[~2021-08-19 07:25] MED LIST changes: +CEFTIN500 MG PO
[2021-08-19] MEDS ORDERED: XARELTO20 MG PO (07:58)
[2021-08-19] MEDS ORDERED: VITAMIN B-6100 MG PO (08:01)
[2021-08-19] MEDS ORDERED: NATURE'S BLE1000 MCG PO (08:02)
[2021-08-19 08:23] VITALS: BP 135/75; PULSE 74; TEMP 97.8
[2021-08-19 10:30] VITALS: BP 147/70; PULSE 65; TEMP 97.1
--- NOTE | 2021-08-19 10:30 | NUR ---
PT ADMITTED TO BAY 1 FROM PACU. REPORT RECEIVED FROM BACK UP SCAN COORDINATOR. VS OBTAINED. PT TOLERATING WATER WITHOUT DIFFICULTY. PT DENIES ANY PAIN AT THIS TIME. DENIES ANY NEEDS. WILL CONTINUE TO MONITOR PT.
[2021-08-19 10:45] VITALS: BP 145/71; PULSE 67
--- NOTE | 2021-08-19 10:45 | NUR ---
PT CONTINUES TO DENY ANY NEEDS AT THIS TIME. DENIES ANY PAIN. PT TOLERATING COFFEE. PT STATES SHE IS READY TO BE DC WHEN SHE IS ABLE TO. WILL CONTINUE TO MONITOR PT.
[2021-08-19 11:00] VITALS: BP 144/74; PULSE 67
--- NOTE | 2021-08-19 11:00 | NUR ---
VSS. PT REQUESTING TO USE RESTROOM. PT AMBULATED WITHOUT DIFFICULTY. PT VOIDED. PT STATES SHE IS FEELING WELL TO DC TO HOME.
--- NOTE | 2021-08-19 11:15 | NUR ---
DISCHARGE INSTRUCTIONS GIVEN TO PT AND . VERBALIZED UNDERSTANDING OF HOME AND FOLLOW UP CARE. ALL QUESTIONS ANSWERED. DISCHARGE PAPERWORK GIVEN TO PT.
== END 2021-08-19 11:35 | disposition home or self-care (01) ==
LOC: SDCO 07:25
DX: N13.1 Hydronephrosis with ureteral stricture, not elsewhere classified (principal); C67.9 Malignant neoplasm of bladder, unspecified; I12.9 Hypertensive chronic kidney disease with stage 1 through stage 4 chronic kidney disease, or unspecified chronic kidney disease; N18.9 Chronic kidney disease, unspecified; E06.3 Autoimmune thyroiditis; E03.9 Hypothyroidism, unspecified; E83.42 Hypomagnesemia; E78.5 Hyperlipidemia, unspecified; M81.0 Age-related osteoporosis without current pathological fracture; Z79.890 Hormone replacement therapy; Z79.01 Long term (current) use of anticoagulants; Z92.3 Personal history of irradiation; Z79.82 Long term (current) use of aspirin; Z79.899 Other long term (current) drug therapy
CPT/HCPCS: C1769; C2617; J0690; J1100; J2405; J2704; J3010; J7120

== ENCOUNTER 2022-02-20 08:57 | Day surgery (SDC) | payer MEDICARE ==
[~2022-02-20] VITALS: Ht 162.6 cm; Wt 62.9 kg
[~2022-02-20 08:57] MED LIST changes: +NATURE'S BLE1000 MCG PO; +VITAMIN B-6100 MG PO
[2022-02-20 10:05] VITALS: BP 153/85; PULSE 81; TEMP 98
[2022-02-20] MEDS ORDERED: BIOTIN10000 MC1 PO (10:24)
[2022-02-20 10:45] VITALS: TEMP 97.5
[2022-02-20 10:55] VITALS: BP 150/69; PULSE 63
--- NOTE | 2022-02-20 10:55 | NUR ---
PATIENT RETURNS TO ROOM 3 PER CART FROM PACU ACCOMPANIED BY CARLOS JIMENEZ AND IS AWAKE AND ALERT. IV FLUIDS INFUSING. TEMP 97.4 AND ROOM AIR SATS 99%. DENIES PAIN OR NAUSEA. SIPPING ON COFFEE AND EATING MUFFIN. SPOUSE IN ROOM.
[2022-02-20 11:10] VITALS: BP 149/67; PULSE 59
--- NOTE | 2022-02-20 11:10 | NUR ---
CONTINUES TO SIP ON COFFEE AND EAT MUFFIN. ROOM AIR SATS 98%.
[2022-02-20 11:20] VITALS: BP 148/76; PULSE 68
--- NOTE | 2022-02-20 11:20 | NUR ---
IV TO INT AND ASSISTED UP TO THE BATHROOM. GAIT STEADY. ABLE TO VOID AND RETURNS TO ROOM. PATIENT DRESSES SELF.
--- NOTE | 2022-02-20 11:30 | NUR ---
DISMISSAL INSTRUCTIONS GIVEN AND VOICES UNDERSTANDING OF THESE. INT DISCONTINUED AND SITE IS FREE OF REDNESS OR SWELLING.
--- NOTE | 2022-02-20 11:38 | NUR ---
PATIENT DISMISSED TO HOME DRIVEN BY SPOUSE PER PRIVATE VEHICLE AND TAKEN TO CAR PER WHEELCHAIR AND HAS DISMISSAL INSTRUCTIONS IN HAND.
== END 2022-02-20 11:38 | disposition home or self-care (01) ==
LOC: SDCO 08:57
DX: N35.92 Unspecified urethral stricture, female (principal); Z85.51 Personal history of malignant neoplasm of bladder; Z79.01 Long term (current) use of anticoagulants; Z79.82 Long term (current) use of aspirin; Z92.21 Personal history of antineoplastic chemotherapy
CPT/HCPCS: C1769; C2617; J0690; J1100; J2405; J2704; J3010; J7120

== ENCOUNTER 2023-07-01 13:58 | Day surgery (SDC) | payer MEDICARE ==
[~2023-07-01] VITALS: Ht 162.6 cm; Wt 69.6 kg
[~2023-07-01 13:58] MED LIST changes: +IRON TABLETS325 MG PO; +SENNA-LAX8.6 MG PO
[2023-07-01] MEDS ORDERED: TURMERIC500 MG PO (14:23)
[2023-07-01 14:29] VITALS: BP 146/79; PULSE 85; TEMP 97.4
[2023-07-01 15:20] VITALS: BP 116/69; PULSE 80; TEMP 97.1
[2023-07-01 15:35] VITALS: BP 121/83; PULSE 80
[2023-07-01 15:45] VITALS: BP 129/82; PULSE 80
--- NOTE | 2023-07-01 15:55 | NUR ---
1520 RETURNS TO ROOM 8 PER CART. AWAKE, ALERT. RESP UNLABORED. HOB ELEVATED 50 DEGREES. VITAL SIGNS OBTAINED. ABD SOFT. DENIES PAIN OR URINARY URGENCY. CALL LIGHT AT STIDE. IN ROOM 1535 TOLERATES PO JUICE WITHOUT NAUSEA 1540 DISCHARGE INSTRUCTIONS REVIEWED. PATIENT VERBALIZES UNDERSTANDING. COPY PROVIDED IN DISCHARGE FOLDER 1547 SITS ON EDGE OF CART. DRESSES SELF, THEN AMBULATES TO BATHROOM WITH STANDBY ASSIST. ADMITS TO VOIDING WITHOUT DIFFICULTY
[2023-07-01 15:59] VITALS: BP 125/83; PULSE 78; TEMP 98.1
== END 2023-07-01 15:55 | disposition home or self-care (01) ==
LOC: SDCO 13:58
DX: N35.92 Unspecified urethral stricture, female (principal); N13.1 Hydronephrosis with ureteral stricture, not elsewhere classified; Z85.51 Personal history of malignant neoplasm of bladder; Z92.3 Personal history of irradiation; Z87.891 Personal history of nicotine dependence
CPT/HCPCS: C1769; C2617; J0690; J1100; J2405; J2704; J3010; J7120